=== PATIENT | male | born 1965 | race Caucasian/White ===

== ENCOUNTER 2023-07-08 14:00 | Outpatient (OUT) | payer BC, SELFPAY ==
--- NOTE | 2023-07-08 14:11 | XR_ITS ---
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 FINDINGS: BONES: Normal alignment with no acute fracture or spondylolisthesis. Anterior fusion C5-C6 with no mechanical failure. Mild degenerative spondylosis and facet osteoarthropathy DISC SPACES: Interbody spacers C5-C6 PARASPINOUS: Negative. No paraspinous abnormality is seen. OTHER: Negative. XR/XR cervical spine 2-3V IMPRESSION: Anterior fusion C5-C6 with no mechanical failure Electronically authenticated by: DELILAH PAGE Date: 07/09/2023 07:02
== END 2023-07-08 14:01 | disposition home or self-care (01) ==
LOC: RAD 14:04
PROVIDERS: PCP Neurological Surgery; Visit Provider Neurological Surgery
DX: M50.122 Cervical disc disorder at C5-C6 level with radiculopathy (principal)
CPT/HCPCS: 72040

== ENCOUNTER 2024-08-19 19:36 | Emergency (ER) | payer BC, SELFPAY ==
[2024-08-19 19:40] VITALS: BP 149/95; PULSE 82; TEMP 36.7; O2SAT 98; BMI 26.7
--- OUTSIDE RECORDS SUMMARY | 2024-08-19 19:42 | XMS_ITS | CCD ---
Author Organization [facility] Care Team Providers Care Reconciler Name Role Phone HARSHAL Hathaway Attending Provider [phone] Anil Soares Unavailable MARIAM MULLIGAN Attending Unavailable WAYLON SARGENT Referring Unavailable ANIL SOARES Referring Unavailable DARRYL WARD Attending Unavailable ANIL SOARES Referring Unavailable DARRYL WARD Attending Unavailable ANIL SOARES Referring Unavailable DARRYL WARD Attending Unavailable MARIAM MULLIGAN Attending Unavailable ANIL SOARES Referring Unavailable MARIAM MULLIGAN Attending Unavailable ANIL SOARES Referring Unavailable NO FAMILY, PHYSICIAN Primary Care Provider Unava ilable MD Anil Soares Attending Provider HARSHAL Rainey Attending Provider Julia Rainey Unavailable NO FAMILY, PHYSICIAN Primary Care Provider Unava ilable MD Anil Soares Attending Provider Anil Soares Admitting Unavailable Anil Soares Attending Unavailable NO FAMILY, PHYSICIAN Primary Care Unavailable Anil Soares Admitting Unavailable Anil Soares Attending Unavailable NO FAMILY, PHYSICIAN Primary Care Unavailable Julia Rainey Admitting Unavailable Julia Rainey Attending Unavailable NO FAMILY, PHYSICIAN Primary Care Unavailable Ainl Soares Attending Unavailable NO FAMILY, PHYSICIAN Primary Care Unavailable Anil Soares Admitting Unavailable Jo Ann Hathaway Admitting Unavailable Jo Ann Hathaway Attending Unavailable NO FAMILY, PHYSICIAN Primary Care Unavailable Allergies Allergy Classification Reported Allergen(s) Allergy Type Date of Onset Reaction(s) Facility (4 sources) buPROPion Drug Allergy Unknown [facility] Other (6 sources) Cefuroxime Drug Allergy 4 knee swelling? [facility] (4 sources) buPROPion; Translations: [bupropion] Drug Allergy 3 Swelling [facility] (1 source) Cefuroxime Drug Allergy 4 [facility] Repository Medications Current Medications Medication Drug Class(es) Dates Sig (Normalized) Sig (Original) methylPREDNISolone 4 mg oral tablet (1 source) Corticosteroid Start: 05-21-2023 Medrol 4 MG as directed Orally daily for 6 May, Active [place] (No Known Home Meds) (2 sources) Start: 07-10-2023 [place] (No Known Home Meds) Active July 10, 2023 1:00am Completed/Discontinued Medications Medication Drug Class(es) Dates Sig (Normalized) Sig (Original) cyclobenzaprine hydrochloride 10 mg oral tablet (11 sources) Muscle Relaxant Start: 12-27-2020 End: 07-10-2023 take 10 mg by mouth three times daily Cyclobenzaprine Discontinued 10 MG PO Three times daily April 21, 2023 1:00am July 10, 2023 12:36pm ibuprofen 800 mg oral tablet (11 sources) Nonsteroidal Anti-inflammatory Drug Start: 04-15-2023 End: 07-10-2023 take 800 mg by mouth once daily Ibuprofen Discontinued 800 MG PO Daily April 15, 2023 1:00am July 10, 2023 12:36pm Start: 12-27-2020 take 1 tablet by kurt every eight hours Ibuprofen 600 MG 1 tab(s) Orally Three times a day for 10 day(s) Take with food 3 times a day for inflammation and pain Dec, Not-Taking/PRN take 1 capsule by mo [facility] every eight hours Ibuprofen 200 MG 1 capsule with food or milk as needed Orally Three times a day Active Ketorolac (4 sources) Nonsteroidal Anti-inflammatory Drug, Cyclooxygenase Inhibitor Start: 12-27-2020 Toradol per 15 mg Dec, 15 mg oxyCODONE hydrochloride 5 mg oral tablet (3 sources) Opioid Agonist Start: 04-21-2023 End: 07-10-2023 take 5-10 mg by mouth every six hours Oxycodone Discontinued 5 - 10 MG PO Q6H 40 8 April 21, 2023 July 10, 2023 12:37pm Prednisone (9 sources) Start: 04-21-2023 End: 07-10-2023 Prednisone Discontinued 1 dose pk PO per package directions April 21, 2023 1:00am July 10, 2023 12:37pm take 4 tabs for 3 days then take 3 tabs for 3 days then take 2 tabs for 3 days then take 1 tab for 3 days Start: 04-21-2023 Prednisone Act susanne 1 dose pk PO per package directions April 21, 2023 12:00am take 4 tabs for 3 days then take 3 tabs for 3 days then take 2 tabs for 3 days then take 1 tab for 3 days Start: 12-11-2022 take 1 tablet by kurt th every twelve hours predniSONE 20 MG 1 tablet Orally bid for 5 day(s) Dec, Not-Taking Toradol 30 mg/ml (4 sources) Start: 12-11-2022 Toradol 30 mg/ ml Dec, 30 mg triamcinolone acetonide 40 mg/ml injectable suspension (4 sources) Corticosteroid Start: 12-11-2022 Kenalog-40 Dec, 40 mg Problems Problem Classification Problem Date Documented Date Episodic/Chronic Other connective tissue disease (2 sources) History of cervical spine fusion; Translations: [Arthrodesis status] 07-10-2023 Episodic Other connective tissue disease (2 sources) Arthrodesis status; Translations: [Arthrodesis status] Onset: 10-23-2023 10-23-2023 Episodic Other non-traumatic joint disorders (1 source) Pain in left shoulder Episodic Spondylosis; intervertebral disc disorders; other back problems (9 sources) Displacement of cervical intervertebral disc without myelopathy; Translations: [Other cervical disc displacement at C5-C6 level] Chronic Spondylosis; intervertebral disc disorders; other back problems (10 sources) Radiculopathy, site unspecified; Translations: [Radiculopathy, cervical region] Onset: 10-23-2023 Episodic Unclassified (1 source) Unspecified cervical disc disorder at C5-C6 level; Translations: [Unspecified cervical disc disorder at C5-C6 level] Onset: 05-21-2023 Unclassified (1 source) Cervical disc disorder at C5-C6 level with radiculopathy; Translations: [Cervical disc disorder at C5-C6 level with radiculopathy] Onset: 04-21-2023 Unclassified (1 source) Encounter for preprocedural cardiovascular examination; Translations: [Encounter for preprocedural cardiovascular examination] Onset: 04-15-2023 Unclassified (1 source) Pain in left shoulder; Translations: [Pain in left shoulder] Onset: 12-31-2022 Results Test Name Value Interpretation Reference Range Facil ity XR cervical spine 2Von 10-22 XR cervical spine 2V [facility] Main [address] [address] XRay Report Signed Patient: Anil Stevens MR#: [id number] 8 : 1965 Acct:[id number] Age/Sex: 58 / M ADM Date: 10/23/23 Loc: XD Room: Type: REG CLI Attending Dr: Anil Soares MD Copies to: Anil Soares MD Ordering Provider: Anil Soares MD Date of Service: 10/23/23 XR/XR cervical spine 2V: M50.122 - Cervical disc disorder at C5-C6 level with radi... CERVICAL SPINE 2 views: CLINICAL HISTORY: Follow-up cervical fusion COMPARISON: Cervical spine 05/21/2023 FINDINGS: Anterior fusion hardware C5-6 without radiographic complication. Vertebral body remaining disc space heights appear maintained. No prevertebral soft tissue swelling. Mild diffuse facet joint degenerative change. XR/XR cervical spine 2V IMPRESSION: NO EVIDENCE OF HARDWARE COMPLICATION. Impression dictated by: Bala Lee Jr., D.O.10/23/2023 1:43 PM Dictation Location: [place] [address] Transcribed By: [facility] 10/23/23 1343 Dictated By: Bala Lee Jr, DO 10/23/23 1341 Signed By: 10/23/23 1343 Normal [facility] XR lumbar spine 2-3V*on 10-04 XR lumbar spine 2-3V* [facility] Main [address] [address] XRay Report Signed Patient: Anil Stevens MR#: [id number] 8 : 1965 Acct:[id number] Age/Sex: 58 / M ADM Date: 10/23/23 Loc: XD Room: Type: REG CLI Attending Dr: Anil Soares MD Copies to: Anil Soares MD Ordering Provider: Anil Soaers MD Date of Service: 10/23/23 XR/XR lumbar spine 2-3V*: Z98.1 - Arthrodesis status LUMBAR SPINE - 2 views CLINICAL HISTORY: Arthrodesis status. COMPARISON: None FINDINGS: Vertebral body heights appear maintained. Scattered endplate and facet joint degenerative changes without significant disc space narrowing. SI joints demonstrate degenerative change. XR/XR lumbar spine 2-3V* IMPRESSION: DEGENERATIVE CHANGES INVOLVING THE LUMBAR SPINE WITHOUT SIGNIFICANT DISC HEIGHT LOSS. Impression dictated by: Bala Lee Jr. D.OLalit10/23/2023 1:44 PM Dictation Location: [place] Transcribed By: [facility] 10/23/23 1344 Dictated By: Bala Lee Jr, DO 10/23/23 1343 Signed By: 10/23/23 1344 Normal [facility] XR cervical spine 2Von 05-21 XR cervical spine 2V [facility] [place] [address] XRay Report Signed Patient: Anil Stevens MR#: [id number] 8 : 1965 Acct:[id number] Age/Sex: 57 / M ADM Date: 05/21/23 Loc: XD Room: Type: [facility] CLI Attending Dr: Julia Rainey NP-C Copies to: HARSHAL Del Valle Ordering Provider: HARSHAL Del Valle Date of Service: 05/21/23 XR/XR cervical spine 2V: M50.922 CERVICAL SPINE 2 views: CLINICAL HISTORY: Follow-up neck surgery. Posterior neck pain. COMPARISON: Intraoperative study 04/21/2023 FINDINGS: Anterior hardware fixation C5-6 without radiographic complication. Vertebral body and remaining disc space heights appear maintained. No prevertebral soft tissue swelling. XR/XR cervical spine 2V IMPRESSION: NO EVIDENCE OF HARDWARE COMPLICATION. Impression dictated by: Bala Lee Jr. D.O.05/21/2023 12:15 PM Dictation Location: [facility]-15 Transcribed By: PWS 05/21/231214 Dictated By: Bala Lee Jr, DO 05/21/231213 Signed By: 05/21/231214 Normal [facility] Jony 04-21-2023 L ---- Specimen: [id number] Received: 04/21/23 Status: NICOLA Navarretebrielle Num: [id number] Spec Type: Surgical Subm Dr: Anil Soares MD Tissues: A Disc - Intervertebral/Lumbar/Ce rvical (DISC-NECK) Procedures: Britt JEFFRIES/Prakash L3 Age/ Patient Sex Location Account Attending Physician Anil Stevens/Anirudh MA [id number] Anil Soares MD SPEC NUM: [id number] RECD: 04/21/23 STATUS: NICOLA GREGG NUM: [id number] CHI: 04/21/23 [facility] DR: Anil Soares MD ENTERED: 04/21/[address] [facility] DR: SPEC TYPE: Surgical DEPT: S ORDERED: NESHA, Gross/Micro L3 ORDERED: NESHA, Gross/Micro L3 Pathological Diagnosis Intervertebral disc, biopsy: Disc cartilage with degenerative changes. Clinical Information Disc herniation Gross Description Received in formalin labeled with the patient's name, date of and disc is a 4.0 x 2.0 x 2.0 cm aggregate of briones-osborne fibrocartilaginous tissue. Collar Packer sections are submitted in one cassette labeled A1. Microscopic Description One H E slide reviewed. The microscopic examination confirms the diagnosis. CPT Codes 92712 Specimen: [id number] Received: 04/21/23 Status: NICOLA Gregg Num: [id number] Spec Type: Surgical Subm Dr: Anil Soares MD Tissues: A Disc - Intervertebral/Lumbar/Ce rvical (DISC-NECK) Procedures: NESHA Gross/Micro L3 Patient: Anil Stevens [id number] (Continued) Signed (signature on file) Kip Ma MD 04/22/23 2143 Normal [facility] XR cervical spine 1Von 04-21 XR cervical spine 1V [facility] [place] [address] XRay Report Signed Patient: Anil Stevens MR#: [id number] 8 : 1965 Acct:[id number] Age/Sex: 57 / M ADM Date: 04/21/23 Loc: Room: [address] [place] [address] Type: [facility] Attending Dr: Anil Soares MD Copies to: Anil Soares MD Ordering Provider: Anil Soares MD Date of Service: 04/21/23 XR/XR cervical spine 1V: . Fluoroscopic assessment for cervical localization HISTORY: ACF C5-6 1 image was obtained. Cumulative Air Kerma in mGy: 0.141 mGy Lateral cervical localization performed. XR/XR cervical spine 1V IMPRESSION: Cervical localization. Impression dictated by: Espinoza Dean M.D.04/21/2023 11:53 AM Dictation Location: [place] [address] Transcribed By: [facility] 04/21/23 1153 Dictated By: Espinoza Dean DO 04/21/23 1149 Signed By: 04/21/23 1153 Normal [facility] ECG 12 lead ECGon 04-15-2023 ECG 12 lead ECG [facility] [place] [address] Electrocardiograph Report Signed Patient: Anil Stevens MR#: [id number] 8 : 1965 Acct:[id number] Age/Sex: 57 / M ADM Date: 04/15/23 Loc: PS Room: Type: [facility] Attending Dr: Anil Soares MD Ordering Provider: Anil Soares MD Date of Service: 04/15/2304/26/1057 ECG/ECG 12 lead ECG: pst Copies to: Test Reason : Blood Pressure : / mmHG Vent. Rate : 062 BPM Atrial Rate : 062 BPM P-R Int : 174 ms QRS Dur : 084 ms QT Int : 408 ms P-R-T Axes : 069 072 058 degrees QTc Int : 414 ms Normal sinus rhythm Normal ECG No previous ECGs available Confirmed by DEREK MUKHERJEE MD ([id number]) on 04/15/2023 2:56:33 PM Referred By: ANIL SOARES Electronically Signed By:DEREK MUKHERJEE MD Transcribed By: MUS Signed By Derek Mukherjee MD [id number] Normal [facility] XR shoulder LT min 2V*on XR shoulder LT min 2V* [facility] Main [place] [id number] XRay Report Signed Patient: Anil Stevens MR#: [id number] 8 : 1965 Acct:[id number] Age/Sex: 57 / M ADM Date: 12/31/22 Loc: XDUCLY Room: Type: [facility] Attending Dr: Jo Ann Hathaway TAPEMAN-C Copies to: HARSHAL Mattson Ordering Provider: HARSHAL Mattson Date of Service: 12/31/22 XR/XR shoulder LT min 2V*: Left shoulder pain, unspecified chronicity 3 views left shoulder plain film HISTORY: Left shoulder pain for 2 weeks. COMPARISON: None ACUTE FINDINGS: None DEGENERATIVE CHANGE: Mild degenerative change. SOFT TISSUE FINDINGS: Unremarkable JOINT EFFUSION: None POSTOP CHANGES: None BONY MINERALIZATION: Adequate XR/XR shoulder LT min 2V* IMPRESSION: No acute findings. Mild degeneration. Impression dictated by: Espinoza Dean M.D.12/31/2022 2:57 PM Dictation Location: [place] [address] Transcribed By: [facility] 12/31/22 1457 Dictated By: Espinoza Dean DO 12/31/22 1456 Signed By: 12/31/221456 Normal [facility] XR shoulder LT min 2V* [facility] Other XR shoulder LT min 2V* [facility] Other XR shoulder LT min 2V* [address] [place] [address] [facility] Other XR shoulder LT min 2V* [place] [address] [facility] Other XR shoulder LT min 2V* XRay Report [facility] Other XR shoulder LT min 2V* Signed [facility] Other XR shoulder LT min 2V* Patient: Anil Stevens MR#: [id number] [facility] Other XR shoulder LT min 2V* 8 [facility] Other XR shoulder LT min 2V* : 1965 Acct:[id number] [facility] Other XR shoulder LT min 2V* Age/Sex: 57 / M ADM Date: 12/31/22 [facility] Other XR shoulder LT min 2V* Loc: XDUCLY Room: Type: [facility] Other XR shoulder LT min 2V* Attending Dr: Jo Ann CAPUTO [facility] Other XR shoulder LT min 2V* Copies to: HARSHAL Mattson [facility] Other XR shoulder LT min 2V* Ordering Provider: HARSHAL Mattson [facility] Other XR shoulder LT min 2V* Date of Service: 12/31/22 [facility] Other XR shoulder LT min 2V* XR/XR shoulder LT min 2V*: Left shoulder pain, unspecified chronicity [facility] Other XR shoulder LT min 2V* 3 views left shoulder plain film [facility] Other XR shoulder LT min 2V* HISTORY: Left shoulder pain for 2 weeks. [facility] Other XR shoulder LT min 2V* COMPARISON: None [facility] Other XR shoulder LT min 2V* ACUTE FINDINGS: None [facility] Other XR shoulder LT min 2V* DEGENERATIVE CHANGE: Mild degenerative change. [facility] Other XR shoulder LT min 2V* SOFT TISSUE FINDINGS: Unremarkable [facility] Other XR shoulder LT min 2V* JOINT EFFUSION: None [facility] Other XR shoulder LT min 2V* POSTOP CHANGES: None [facility] Other XR shoulder LT min 2V* BONY MINERALIZATION: Adequate [facility] Other XR shoulder LT min 2V* XR/XR shoulder LT min 2V* [facility] Other XR shoulder LT min 2V* IMPRESSION: No acute findings. Mild degeneration. [facility] Other XR shoulder LT min 2V* Impression dictated by: Espinoza Dean M.D.12/31/2022 2:57 PM [facility] Other XR shoulder LT min 2V* Dictation Location: [place] [address] [facility] Other XR shoulder LT min 2V* Transcribed By: PWS 12/31/22 [facility] Other XR shoulder LT min 2V* Dictated By: Espinoza Dean DO 12/31/22 [facility] Other XR shoulder LT min 2V* Signed By: [facility] Other XR shoulder LT min 2V* 12/31/22 [facility] Other Vital Signs Date Time Vital Sign Value Performing Clinician Facility 10-23-2023 14:25-0400 Body height 177.8 cm PHYSICIAN NO [facility] 10-23-2023 14:25-0400 Body mass index (BMI) [Ratio] 26.5 kg/m2 PHYSICIAN NO [facility] 10-23-2023 14:25-0400 Body weight 83.91 kg PHYSICIAN NO [facility] 05-21-2023 08:40-0500 Body height 177.8 cm [employer] Other [facility] Other 05-21-2023 08:40-0500 Body mass index (BMI) [Ratio] 28.26 kg/m2 [employer] Other [facility] Other 05-21-2023 08:40-0500 Body weight 89.36 kg [employer] Other [facility] Other 04-22-2023 08:07-0500 Body temperature 99.6 [degF] PHYSICIAN NO [facility] 04-22-2023 08:07-0500 Diastolic blood pressure 97 mm[Hg] PHYSICIAN NO [facility] 04-22-2023 08:07-0500 Heart rate 77 /min PHYSICIAN NO [facility] 04-22-2023 08:07-0500 Respiratory rate 16 /min PHYSICIAN NO [facility] 04-22-2023 08:07-0500 SaO2% (BldA) [Mass fraction] 96 % PHYSICIAN NO [facility] 04-22-2023 08:07-0500 Systolic blood pressure 173 mm[Hg] PHYSICIAN NO [facility] 04-22-2023 06:00-0500 Body weight 88.7 kg PHYSICIAN NO [facility] 04-21-2023 09:30-0500 Inhaled oxygen flow rate 8 L/min PHYSICIAN NO [facility] 04-21-2023 07:11-0500 Body height 180.34 cm PHYSICIAN NO [facility] 04-21-2023 07:11-0500 Body mass index (BMI) [Ratio] 26.9 kg/m2 PHYSICIAN NO [facility] 04-10-2023 11:00-0500 Body height 177.8 cm Anil Soares Other [facility] Other 04-10-2023 11:00-0500 Body mass index (BMI) [Ratio] 27.69 kg/m2 Anil Soares Other [facility] Other 04-10-2023 11:00-0500 Body weight 87.54 kg Anil Soares Other [facility] Other 03-18-2023 14:20-0500 Body height 177.8 cm Anil Soares Other [facility] Other 03-18-2023 14:20-0500 Body mass index (BMI) [Ratio] 27.12 kg/m2 Anil Soares Other [facility] Other 03-18-2023 14:20-0500 Body weight 85.73 kg Anil Soares Other [facility] Other 03-18-2023 14:20-0500 Diastolic blood pressure 80 mm[Hg] Anil Soares Other [facility] Other 03-18-2023 14:20-0500 SaO2% (BldA) [Mass fraction] 97 % Anil Soares Other [facility] Other 03-18-2023 14:20-0500 Systolic blood pressure 136 mm[Hg] Anil Soares Other [facility] Other 12-31-2022 14:25-0400 Body height 177.8 cm Jo Ann Lemusmond Other [facility] Other 12-31-2022 14:25-0400 Body mass index (BMI) [Ratio] 27.49 kg/m2 Jo Ann Mag Other [facility] Other 12-31-2022 14:25-0400 Body temperature 97.7 [degF] Jo Ann Mag Other [facility] Other 12-31-2022 14:25-0400 Body weight 86.91 kg Jo Ann Mag Other [facility] Other 12-31-2022 14:25-0400 Diastolic blood pressure 86 mm[Hg] Jo Ann Mag Other [facility] Other 12-31-2022 14:25-0400 Respiratory rate 18 /min Jo Ann Mag Other [facility] Other 12-31-2022 14:25-0400 SaO2% (BldA) [Mass fraction] 98 % Jo Ann Mag Other [facility] Other 12-31-2022 14:25-0400 Systolic blood pressure 134 mm[Hg] Jo Ann Mag Other [facility] Other Encounters Encounter Date Encounter Type Care Provider Facility Start: 10-23-2023 End: 10-23-[address] [facility] Work Phone: Start: 10-23-2023 End: 10-23-2023 Patient encounter procedure PHYSICIAN NO [facility] Work Phone: Start: 10-23-2023 End: 10-23-2023 Patient encounter procedure PHYSICIAN NO [facility] [place] Work Phone: Start: 10-23-2023 End: 10-23-[address] [facility] Work Phone: Start: 05-21-2023 Postop follow up vis it related to original px Julia Rainey [facility] Start: 05-21-2023 End: 05-21-2023 Patient encounter procedure PHYSICIAN NO [facility] [place] Work Phone: Start: 05-21-2023 End: 05-21-[address] [facility] Work Phone: Start: 04-21-2023 End: 04-22-2023 Admission to same day surgery center PHYSICIAN NO [facility] [place] Start: 04-21-2023 End: 04-22-2023 ambulatory Anil Soares Facility:[facility] Start: 04-15-2023 End: 04-15-2023 Patient encounter procedure PHYSICIAN NO [facility] Work Phone: Start: 04-15-2023 End: 04-15-[address] [facility] Work Phone: Start: 04-10-2023 End: 04-10-2023 ambulatory Anil Soares Other [place] [facility] Other Start: 04-10-2023 Office outpatient visit 40 minutes Anil Soares [facility] Start: 03-31-2023 End: 03-31-2023 ambulatory MARIAM Maxwell [facility]KELBRIONNA Not Available Start: 03-26-2023 End: 03-26-2023 ambulatory MARIAM Maxwell [facility] Not Available Start: 03-25-2023 End: 03-25-2023 ambulatory ANIL SOARES Not Available Start: 03-24-2023 End: 03-24-2023 ambulatory ANIL SOARES Not Available Start: 03-21-2023 End: 03-21-2023 ambulatory ANIL SOARES Not Available Start: 03-19-2023 End: 03-19-2023 ambulatory MARIAM MULLIGAN Not Available Start: 03-18-2023 End: 03-18-2023 ambulatory Anil Soares Other [facility] Other Start: 03-18-2023 Office outpatient ne w 30 minutes Anil Sri [facility] Start: 12-31-2022 End: 12-31-2022 Patient encounter procedure TAPEMAN-C Jo Ann Hathaway Work Phone: [facility] Work Phone: Start: 12-31-2022 End: 12-31-2022 ambulatory Jo Ann Hathaway [facility] Work Phone: Start: 12-31-2022 Office outpatient visit 15 minutes Jo Ann Hathaway [facility] Procedures Date Procedure Procedure Detail Performing Clinician Start: 10-23-2023 X-ray of cervical spine PHYSICIAN NO FAMILY Start: 10-23-2023 X-ray of lumbar spin e, two or three views PHYSICIAN NO FAMILY Start: 05-21-2023 X-ray of cervical spine PHYSICIAN NO FAMILY Start: 04-21-2023 OR Cervical Fusion Anterior (Not Applicable) PHYSICIAN NO FAMILY Start: 04-21-2023 X-ray of cervical spine PHYSICIAN NO FAMILY Start: 12-31-2022 Plain X-ray of left shoulder TAPEMAN-C Jo Ann Hathaway Work Phone: Plan of Treatment Date Care Activity Detail Author Start: 04-22-2023 [facility] Start: 04-21-2023 Hospital admission [facility] Patient referral [facility] Work Phone: Payers Date Payer Category Payer Self-pay 2020 [id number] 1965 Unknown [id number] .[id number] 1965 Unknown [id number] 2.16.840 .[id number] 1965 Unknown [id number] 2.16.840 .[id number] 1965 Unknown [id number] 2.16.840 .[id number] 1965 Unknown [id number] 2.16.840 .[id number] 1965 Unknown [id number] 2.16.840. [id number] Unknown [id number] Unknown [id number] 2.16.8 [id number] Unknown [id number] 2.16.8 [id number] Unknown [id number] 2.16.8 [id number] Unknown [id number] 2.16.8 [id number] Unknown [id number] 2.16.8 [id number] Social History Date Type Detail Facility Tobacco smoking status MEIS Unknown if ever smoked [facility] Work Phone: Start: 1965 Sex Assigned At Male F [facility] Sex Assigned At Sex Assigned At Bir th [facility] Other Start: 04-15-2023 End: 04-21-2023 Tobacco smoking status NHIS Smoker (finding) [facility] Medical Equipment Procedure Code Equipment Code Equipment Origin al Text Equipment Identifier Dates BONE 7MM DUO FORTITUDE SERIES FDA Start: 04-21-2023 Spinal fixation plate, non-bioabsorbable ()[id number] FDA Start: 04-21-2023 Spinal fixation plate, non-bioabsorbable ()[id number] FDA Start: 04-21-2023 BONE 7MM DUO FORTITUDE SERIES FDA Start: 04-21-2023 BONE 7MM DUO FORTITUDE SERIES FDA Start: 04-21-2023 Goals Date Patient Goal Desired Activity /State Functional Status Date Assessment Result Facility 04-22-2023 Functional status Patient at [facility] Work Phone: Mental Status Date Assessment Result Facility 04-22-2023 Cognitive function Cognitive Sta tus Patient at [facility] Work Phone: Evaluation note 05-21-2023 Note Date & Type Note Facility 05-21-2023 Evaluation note Encounter Date Diagnosis Assessment Notes May, Radiculopathy affecting upper extremity (ICD-10 - M54.10) Anil is doing very well, his radicular symptoms are completely gone. He is having some pain in his deltoid, mostly when he coughs. I do not think this is dermatomal. I have ordered him for a steroid taper to see if this helps. I reviewed the x-ray of his cervical spine showing good bony alignment good hardware placement and shared these with the patient. I will see him again in 2 months with another x-ray of his cervical spine. May, Disorder of intervertebral disc at C5-C6 level (ICD-10 - M50.922) [facility] Other Evaluation note 04-10-2023 Note Date & Type Note Facility 04-10-2023 Evaluation note Encounter Date Diagnosis Assessment Notes Apr, Disorder of intervertebral disc at C5-C6 level (ICD-10 - M50.922) I again reviewed the MRI showing a left C5-6 disc herniation with nerve root impingement.He has pain in the left C6 distribution with bicep weakness. He has attended 6 sessions of physical therapy with worsening of the symptoms they gave no significant relief or prolonged relief. Given the failure of physical therapy weakness of the left arm pain that inhibits his ability to work well he is in need of an anterior cervical discectomy with structural allograft fusion and anterior plate. The indication operation postop course risk benefits of surgery and complications to include infection paralysis nerve damage incomplete relief of symptoms failure of hardware spinal fluid leak swallowing difficulty or hoarseness were discussed he understands and would like to proceed with surgical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
--- NOTE | 2024-08-19 21:11 | ED.GENADUL1 ---
HPI HPI - General Adult General Chief complaint: Extremity Injury, Lower Stated complaint: Fall Time Seen by Provider: 08/19/24 19:51 Source: patient Mode of arrival: Wheelchair Limitations: no limitations History of Present Illness HPI narrative: 59-year-old male presents here with chief complaint of a left ankle injury. Patient states he was drinking alcohol and accidentally slipped twisting his ankle and falling off a porch. Denies striking his head or any other injury. Comes in with a bimalleolar swelling noted to the left ankle. No previous fracture to this extremity. Extremities neurovascularly intact. Patient is alert and orient appropriate for age. No sign of head injuries no trauma other than left ankle pain. Related Data Previous Rx's ?Medication ?Instructions ?Recorded ibuprofen 800 mg tablet 800 mg PO Q8H PRN pain #30 tabs 08/19/24 Allergies Allergy/AdvReac Type Severity Reaction Status Date / Time bupropion (From Wellbutrin) Allergy Severe Swelling Verified 08/19/24 19:43 of the Eye Opioid HPI Opioid Management Most Recent Opioid Data: No Data to Display Review of Systems ROS Status of ROS 10 or more systems reviewed and unremarkable except as noted in history and below PFSH PFSH Social History Little interest or pleasure in doing things: not at all Feeling down, depressed, or hopeless: not at all Exam Narrative Exam Narrative: Nurses note and vital signs reviewed and patient is not hypoxic. General: The patient appears well and in no apparent distress. Patient is resting comfortably on cart. Skin: Warm, dry, no pallor noted. There is no rash noted. Head: Normocephalic, atraumatic Eye: Normal conjunctiva, no drainage, EOMI. PERRL Ears, Nose, Mouth, and Throat: oral mucosa is moist. Nares patent. Mouth without vesicles. Ear canals patent. Tm's without Erythema Musculoskeletal: Bimalleolar ankle swelling. Extremities neurovascular intact. Pain and tenderness bimalleolar region. Neurological: A&O x4, normal speech Psychiatric: Cooperative Constitutional Vital Signs, click to edit/add: Last Vital Signs Temp 98.1 F 08/19/24 19:40 Pulse 82 08/19/24 19:40 Resp 18 08/19/24 19:40 BP 149/95 H 08/19/24 19:40 Pulse Ox 98 08/19/24 19:40 O2 Del Method Room Air 08/19/24 19:40 Course Vital Signs Vital signs: Vital Signs Temperature 98.1 F 08/19/24 19:40 Pulse Rate 82 08/19/24 19:40 Respiratory Rate 18 08/19/24 19:40 Blood Pressure 149/95 H 08/19/24 19:40 Pulse Oximetry 98 08/19/24 19:40 Oxygen Delivery Method Room Air 08/19/24 19:40 Temperature 98.1 F 08/19/24 19:40 Pulse Rate 82 08/19/24 19:40 Respiratory Rate 18 08/19/24 19:40 Blood Pressure 149/95 H 08/19/24 19:40 Pulse Oximetry 98 08/19/24 19:40 Oxygen Delivery Method Room Air 08/19/24 19:40 Medical Decision Making Differential Diagnosis Differential Diagnosis: X-ray ankle sprain, fracture Medical Records Medical records reviewed: Yes I reviewed the patient's medical records Medical records narrative: 59-year-old male presents here with chief complaint of a left ankle injury. Patient states he was drinking alcohol and accidentally slipped twisting his ankle and falling off a porch. Denies striking his head or any other injury. Comes in with a bimalleolar swelling noted to the left ankle. No previous fracture to this extremity. Extremities neurovascularly intact. Patient is alert and orient appropriate for age. No sign of head injuries no trauma other than left ankle pain. Patient presented here with a chief complaint of a fall falling off his porch. He had no head or neck pain. Soft tissue swelling was noted to the left ankle ankle x-ray foot x-ray and tib-fib x-rays were performed patient has a distal tibial fracture. Patient was placed in a sugar-tong posterior splint applied by myself. Extremities neurovascular intact before and after application of this. Rest ice elevation. Patient had drink he states 6 beers prior to arrival. Medicated here with ibuprofen. I advised him I will send him home with Broussard. He will be discharged home with a prescription for Broussard and ibuprofen. Follow-up with Dr. Whaley on Friday the at noon. Patient agrees with plan of care Close becomes swollen or any change in color to loosen or remove the Gino wrap. Do not hesitate. Otherwise leave Gnio wrap and splint intact. Imaging Data foot: Attestation: I have reviewed the pertinent imaging results. My impression: Left tibia fracture Discharge Plan Discharge Chief Complaint: Extremity Injury, Lower Clinical Impression: Ankle fracture Patient Disposition: Home, Self-Care Time of Disposition Decision: 21:15 Condition: Good Prescriptions / Home Meds: New ibuprofen 800 mg tablet 800 mg PO Q8H PRN (Reason: pain) Qty: 30 0RF Print Language: Nepali Instructions: Ankle Fracture (DC), P.R.I.C.E. Treatment (ED) Referrals: MIRYAM SOARES [Primary Care Provider] - 1 week René Roa MD [Physician] - 08/23/24 12:00 pm
[2024-08-19] MEDS: HYDROCODONE/ACET 5-325 MG TABLET 2 TAB PO (21:32)
[2024-08-19] MEDS: IBUPROFEN 400 MG TABLET 800 MG PO (21:32)
== END 2024-08-19 21:43 | disposition home or self-care (01) ==
PROVIDERS: Emergency Provider Emergency Medicine; PCP Neurological Surgery
DX: S82.845A Nondisplaced bimalleolar fracture of left lower leg, initial encounter for closed fracture (principal); W17.89XA Other fall from one level to another, initial encounter; X50.1XXA Overexertion from prolonged static or awkward postures, initial encounter; F10.90 Alcohol use, unspecified, uncomplicated
CPT/HCPCS: 29515; 73590; 73610; 73630; 99284

== ENCOUNTER 2024-08-24 13:30 | Outpatient (OUT) | payer BC, SELFPAY ==
--- NOTE | 2024-08-24 13:45 | CT_ITS ---
[place] [id number] Patient Name: MIRYAM KING MRN: [id number] date: 1965 Sex: M Assigned Patient Location: CT Current Patient Location: CT Accession/Order Number: [id number] Exam Date: 08/24/2024 14:43 Report Date: 08/24/2024 14:48 At the request of: GABBY ANGULO MD Procedure: CT ankle LT wo con CT left ankle without contrast TECHNIQUE: The CT exam was performed using one or more the following dose reduction techniques: Automated exposure control, adjustment of the MA and/or Kv according to patient size, or use of the iterative reconstruction technique. COMPARISON: Plain film left ankle 08/19/2024 HISTORY: Follow-up assessment of left ankle fracture. Fell . Transverse fracture base of the medial malleolus. Mildly comminuted intra-articular fracture of the distal lateral aspect of the tibia. Mild gaping of step-off. Ankle mortise intact. Small bony fragments in the distal syndesmosis. May represent disruption. Contact of the talus. Intact fibula. Unremarkable subtalar joint. Intact calcaneus. Intact in navicular. Intact cuboid. Intact the cuneiforms. Small joint effusion. The tendons intact. Subcutaneous bone marrow edema. CT/CT ankle LT wo con IMPRESSION: Intra-articular comminuted distal tibial fracture. Impression dictated by: Espinoza Dean M.D.08/24/2024 2:48 PM Dictation Location: [place] [address] Electronically authenticated by: [id number] Y Date: 08/24/2024 14:48
== END 2024-08-24 13:31 | disposition home or self-care (01) ==
LOC: CT 13:30
PROVIDERS: Visit Provider Orthopaedic Surgery
DX: S82.302D Unspecified fracture of lower end of left tibia, subsequent encounter for closed fracture with routine healing (principal)
CPT/HCPCS: 73700

== ENCOUNTER 2024-08-30 12:02 | Day surgery (SDC) | payer BC, SELFPAY ==
[2024-08-30] VITALS (14 sets, daily range): BP systolic 141–166; BP diastolic 83–104; PULSE 73–92; TEMP 35.6–36.8; O2SAT 93–96; BMI 15.3; BMI 26.7
--- NOTE | 2024-08-30 12:03 | ECG_ITS ---
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 Measurements Intervals [place] Rate: 69 P: 61 ME: 167 QRS: 52 QRSD: 91 T: 44 QT: 390 QTc: 420 Interpretive Statements SINUS RHYTHM Normal ECG No previous ECG available for comparison Electronically Signed On 08-30-2024 16:09:54 EDT by YULIET HAYWARD M.D.
[2024-08-30 12:13] LABS: Basophils Percent Auto 0.5 % (0.2-2.0); Eosinophils Absolute Auto 0.1 10^3/uL (0.0-0.7); Eosinophils Percent Auto 0.8 % (0.9-7.0); Hematocrit 41.1 % (42.0-54.0); Immature Granulocytes Abs Auto 0.02 10^3/uL (0.00-0.03); Immature Granulocytes Pct Auto 0.3 % (0.0-0.5); Lymphocytes Absolute Auto 2.1 10^3/uL (1.2-3.8); Mean Corpuscular HGB Conc 34.1 g/dL (29.9-35.2); Mean Corpuscular Hemoglobin 32.1 pg (25.9-34.0); Mean Corpuscular Volume 94.3 fL (80.0-94.0); Mean Platelet Volume 9.2 fL (9.5-13.5); Monocytes Absolute Auto 0.7 10^3/uL (0.3-0.8); Monocytes Percent Auto 8.7 % (1.7-12.0); Neutrophils Absolute Auto 4.6 10^3/uL (1.4-6.5); Neutrophils Percent Auto 61.7 % (43.0-75.0); Platelet Count 306 10^3/uL (150-450); Red Blood Count 4.36 10^6/uL (4.70-6.10); Red Cell Distribution Width 12.1 % (11.0-15.0); White Blood Count 7.5 10^3/uL (4.0-11.0)
[2024-08-30 12:41] LABS: Anion Gap 11.4; BUN Creatinine Ratio 17.6; Calcium 9.3 mg/dL (8.5-10.1); Carbon Dioxide 30.6 mmol/L (21.0-32.0); Chloride 103 mmol/L (98-107); Estimated GFR (African America >60 (>=60 mL/min/1.73m^2); Estimated GFR (Non-African Ame >60 (>=60 mL/min/1.73m^2); Glucose 101 mg/dL (74-106); Sodium 141 mmol/L (136-145)
[2024-08-30] MEDS: LACTATED RINGER'S SOLUTION 1,000 ML 50 ML IV (14:19)
[2024-08-30] MEDS: CEFAZOLIN SODIUM 2 GM/50 ML D5W PREMIX IV (14:20)
--- NOTE | 2024-08-30 14:35 | PM.ORPRC ---
Procedure Note Date of procedure: 08/30/24 Pre-op diagnosis: Right tibial plateau fracture Post-op diagnosis: same as pre-op Procedure: Procedure: ORIF right tibial plafond fracture Detailed description of procedure: After informed consent was obtained the patient was brought to the operating room where general anesthetic was administered. A well-padded proximal thigh tourniquet was placed. Leg was prepped and draped in usual sterile fashion. The leg was elevated, exsanguinated, and the tourniquet was inflated to 275 mmHg. A 5 cm incision was made overlying the medial malleolus fracture. Blunt dissection was carried down through soft tissue. Long saphenous vein was identified and protected. 2 K wires were placed in the medial malleolus for the Synthes 4.0 cannulated screw system. X-rays confirmed appropriate placement. Lateral x-rays revealed at this time that the fracture which was confined to the tibial plafond and had actually spiraled up into the distal tibia shaft. Patient did report today that he had fallen again and reinjured his ankle over the weekend. This additional trauma because of the progression of the fracture which was not visualized on the CT scan prior to his second fall. Given that the long spiral was stable and reduced decision was made not to place a plate and screws. These were measured overdrilled and then a total of two 4.0 partially-threaded cannulated screws were placed. Solid compression of the fracture site was achieved. X-rays in multiple planes confirmed appropriate implant placement. Attention was turned to the anterior lateral fracture fragment. A 3 cm incision was made just medial to the fibula. Blunt dissection was carried down through soft tissue. Tendons and muscle retracted in the distal tibia plafond was visualized. 2 K wires were placed from anterior to posterior through the anterolateral fracture fragment. X-rays confirmed appropriate placement and reduction of the tibial plafond. These were measured overreamed and then a total of two 4.0 Synthes cannulated screws were placed. Solid compression was achieved. Wounds were irrigated and closed with absorbable suture in layers. Steri-Strips and a sterile dressing were placed. A well-padded splint was placed made of fiberglass posteriorly and a stirrup. Tourniquet was deflated. Patient was awakened and brought to the recovery in stable condition. There were no intraoperative or immediate postoperative complications. Anesthesia: General-LMA Surgeon: René Roa Estimated blood loss (mL): 10 Pathology: none sent Condition: stable Disposition: PACU
[2024-08-30] MEDS: LIDOCAINE HCL 1%-EPINEPHRINE 1:100,000 20 ML MDV 10 ML INJ (15:46)
[2024-08-30] MEDS: BUPIVACAINE HCL 0.5% PF 50 MG/10 ML VIAL INJ (15:46)
[2024-08-30] MEDS: HYDROMORPHONE HCL 0.5 MG/0.5 ML SYRINGE IV (16:25)
== END 2024-08-30 17:25 | disposition home or self-care (01) ==
PROVIDERS: Visit Provider Orthopaedic Surgery
PROC: (CPT 1480; principal; 2024-08-30 13:55)
DX: S82.872A Displaced pilon fracture of left tibia, initial encounter for closed fracture (principal)
CPT/HCPCS: 27827; 36415; 71045; 76000; 80048; 85025; 93005; C1713; J0665; J0690; J1100; J1171; J1885; J2250; J2405; J2704; J3010